=== PATIENT | male | born 1995 | race Caucasian/White ===

== ENCOUNTER → 2017-03-01 | Outpatient (CLI) | payer OTHER | END | disposition home or self-care (01) | LOC: CFH 10:49 | PROVIDERS: ATTEND Nurse Practitioner Family | DX: M62.830 Muscle spasm of back (principal); Q76.49 Other congenital malformations of spine, not associated with scoliosis; R23.3 Spontaneous ecchymoses; V80.018A Animal-rider injured by fall from or being thrown from other animal in noncollision accident, initial encounter | CPT/HCPCS: 72114 ==

== ENCOUNTER 2021-05-09 10:00 | Inpatient (IN) | payer OTHER ==
[~2021-05-09] VITALS: Ht 193 cm; Wt 127.3 kg
[2021-05-09] MEDS ORDERED: KETOROLAC 30 MG/1 ML ONE (10:52)
[2021-05-09] MEDS ORDERED: ONDANSETRON ODT 4 MG ONE (10:52)
[2021-05-09 11:00] LABS: BASOPHILS % (AUTO) 0 % (0-1); EOSINOPHILS % (AUTO) 0 % (1-7); LYMPHOCYTES % (AUTO) 7 % (22-44); MEAN CORPUSCULAR HEMOGLOBIN 29.9 pg (27.5-34.5); MEAN CORPUSCULAR HGB CONC 34.2 g/dL (33.2-36.2); MEAN PLATELET VOLUME 9.7 fL (7.4-10.4); MONOCYTES % (AUTO) 10 % (2-9); NEUTROPHILS % (AUTO) 82 % (42-75); PLATELET COUNT 298 x10^3/uL (130-400); RED BLOOD COUNT 5.57 x10^6/uL (4.38-5.82); RED CELL DISTRIBUTION WIDTH 13.4 % (9.4-14.8)
[2021-05-09] MEDS ORDERED: KETOROLAC 30 MG/1 ML IM ONE (11:00)
[2021-05-09] MEDS ORDERED: ONDANSETRON ODT 4 MG PO ONE (11:00)
[2021-05-09 11:03] LABS: ALBUMIN 4.1 g/dL (3.4-5.0); ANION GAP 6 mmol/L (5-15); CALCIUM 9.4 mg/dL (8.5-10.1); CHLORIDE 105 mmol/L (98-107); CREATININE 1.09 mg/dL (0.7-1.3)
--- NOTE | 2021-05-09 11:10 | NUR ---
pt w onset yes lower quad abd pain/flank pain. no hx kidney stone, vomiting and nausea yest, today just nausea. so uncomfortable he can barely walk. zofran odt and toradol im per md, ice chips per md. plan ct w/o contrast, pt updated on poc, vss, call carr in reach gf at bedside. no fevers. as
[2021-05-09 11:31] LABS: MICROSCOPIC AUTO
--- NOTE | 2021-05-09 11:45 | NUR ---
pt reports decr pain level and looks more comfortable after meds. ct pending. as
[2021-05-09] MEDS ORDERED: SODIUM CHLORIDE 0.9% 1,000ML IVBOLUS ONE (12:00)
[2021-05-09] MEDS ORDERED: SODIUM CHLORIDE FLUSH 10ML SYR IVF ONE (12:00)
[2021-05-09] MEDS ORDERED: MORPHINE SULFATE 4 MG/ML, 1ML IVPush PRN (12:00)
[2021-05-09] MEDS ORDERED: CEFOTETAN PMX 1GM/50ML 50 ML IV ONE (12:00)
[2021-05-09] MEDS ORDERED: MORPHINE SULFATE 4 MG/ML, 1ML ONE (12:20)
--- NOTE | 2021-05-09 12:28 | NUR ---
DECLINED MORPHINE FOR NOW, COMFORTABLE. VSS. PLAN SURGERY. COVID SWAB SENT. BONNIE GARZON FROM [facility].
[2021-05-09] MEDS ORDERED: PLEASE ENTER ALLERGIES MC SCH (12:30)
--- NOTE | 2021-05-09 13:06 | NUR ---
report to saige miranda. as
--- NOTE | 2021-05-09 13:22 | NUR ---
last ate yest at 0700. had some ice chips on arrival to ed here today. as
[2021-05-09 13:40] VITALS: BP 123/78
[2021-05-09] MEDS ORDERED: EPINEPHRINE 1 MG/ML, 1ML ONE (14:24)
[2021-05-09] MEDS ORDERED: BUPIVACAINE/PF 0.5% ONE (14:24)
[2021-05-09] MEDS ORDERED: FENTANYL PF 100 MCG/2ML ONE ×2 (14:39→15:43)
[2021-05-09] MEDS ORDERED: MIDAZOLAM 1 MG/ML, 2ML ONE (14:39)
[2021-05-09] MEDS ORDERED: BUPIVACAINE/PF-EPI 0.5% 1:200K IM ONE (15:03)
[2021-05-09] MEDS ORDERED: IBUP-1223 PO (15:33)
[2021-05-09] MEDS ORDERED: OXYC5TAB2 PO (15:33)
[2021-05-09] MEDS ORDERED: ACET-1600 PO (15:33)
[2021-05-09] MEDS ORDERED: OXYcodone 5 MG/5 ML ORAL.SOL UDC ONE (15:56)
[2021-05-09] MEDS ORDERED: HYDROcodone/APAP 7.5-325MG/15ML UDC PO PRN (16:00)
[2021-05-09] MEDS ORDERED: PROMETHAZINE 25 MG/ML, 1ML IVPush PRN (16:00)
[2021-05-09] MEDS ORDERED: HYDROmorphone 1 MG/ML, 1ML INJ IVPush PRN (16:00)
[2021-05-09] MEDS ORDERED: KETOROLAC 30 MG/1 ML IVPush PRN (16:00)
[2021-05-09] MEDS ORDERED: ACETAMINOPHEN 500 MG TABLET PO SCH (16:00)
[2021-05-09] MEDS ORDERED: OXYcodone 5 MG/5 ML ORAL.SOL UDC PO PRN (16:00)
[2021-05-09] MEDS ORDERED: ONDANSETRON 2MG/ML, 2ML IVPush PRN (16:00)
[2021-05-09] MEDS ORDERED: FENTANYL PF 100 MCG/2ML IV PRN (16:00)
[2021-05-09] MEDS ORDERED: METHOCARBAMOL 1000MG/10 ML IV SCH (16:00)
[2021-05-09] MEDS ORDERED: MEPERIDINE/PF 25MG/0.5ML IVPush PRN (16:00)
[2021-05-09 16:35] VITALS: BP 138/90
[2021-05-09] MEDS: IBUPROFEN 800 MG TABLET PO SCH ×2 (17:28→20:49)
[2021-05-09 19:21] VITALS: BP 120/78
[2021-05-09] MEDS: OXYcodone IR 5MG TABLET PO PRN ×2 (20:24→20:49)
== END 2021-05-09 20:50 | disposition home or self-care (01) | DRG 343 ==
LOC: ED 10:41 → EDIP 13:20 → 4NE 13:28
PROVIDERS: ADMIT Surgery; ATTEND Surgery
PROC: 0DTJ4ZZ Resection of Appendix, Percutaneous Endoscopic Approach (ICD-10-PCS; principal; 2021-05-09 16:00)
DX: K35.30 Acute appendicitis with localized peritonitis, without perforation or gangrene (principal); Z20.822 Contact with and (suspected) exposure to COVID-19; K38.1 Appendicular concretions; Z82.49 Family history of ischemic heart disease and other diseases of the circulatory system
CPT/HCPCS: 36415; S0020; 74176; 80048; 81001; 82040; 85025; 87086; 87635; G0378; J0171; J1885; J2250; J3010; Q0162; J7030